=== PATIENT | male | born 1970 | race Two or more races ===

== ENCOUNTER 2022-08-11 21:08 | Inpatient (IN) | payer OTHER ==
[2022-08-11] MEDS ORDERED: LORazepam 2 MG/ML SDV VIAL IM ONE (21:15)
[2022-08-11] MEDS ORDERED: METOPROLOL TARTRATE 50 MG TABLET (FP) PO ONE (21:29)
[2022-08-11] MEDS ORDERED: chlordiazePOXIDE HCL 25 MG CAPSULE PO ONE (21:42)
[2022-08-11] MEDS ORDERED: chlordiazePOXIDE HCL 25 MG CAPSULE ONE (21:42)
[2022-08-11] MEDS ORDERED: METOPROLOL TARTRATE 25 MG TABLET (FP) ONE (21:42)
[2022-08-11] MEDS ORDERED: ACETAMINOPHEN 325 MG TABLET (FP) PO PRN (21:58)
[2022-08-11] MEDS ORDERED: MAGNESIUM HYDROX 2400MG/30ML ORAL SUSPENSION 30 ML CUP PO PRN (21:58)
[2022-08-11] MEDS ORDERED: POLYETHYLENE GLYCOL (HEALTHYLAX) 3350 17 GM PACKET PO PRN (21:58)
[2022-08-11] MEDS ORDERED: P-EPHED 60MG/TRIPROLIDI 2.5MG TABLET PO PRN (21:58)
[2022-08-11] MEDS ORDERED: BISMUTH SUBSALICYLATE 524 MG/30 ML PO PRN (21:58)
[2022-08-11] MEDS ORDERED: BENZONATATE 200 MG CAPSULE PO PRN (21:58)
[2022-08-11] MEDS ORDERED: BENZOCAINE/MENTHOL (CHLORASEPTIC ) LOZENGE MM PRN (21:58)
[2022-08-11] MEDS ORDERED: DICYCLOMINE HCL 10 MG CAPSULE PO PRN (21:58)
[2022-08-11] MEDS ORDERED: LOPERAMIDE HCL 2 MG CAPSULE PO PRN (21:58)
[2022-08-11] MEDS ORDERED: IBUPROFEN 400 MG TABLET (FP) PO PRN (21:58)
[2022-08-11] MEDS ORDERED: guaiFENesin 600 MG TABLET.ER (FP) PO PRN (21:58)
[2022-08-11] MEDS ORDERED: IBUPROFEN 600 MG TABLET (FP) PO PRN (21:58)
[2022-08-11] MEDS ORDERED: NICOTINE 10 MG CARTRIDGE (INHALER) IH PRN (21:58)
[2022-08-11] MEDS ORDERED: ONDANSETRON *ODT* 4 MG TABLET SL PRN (21:58)
[2022-08-11] MEDS ORDERED: MAG HYDROX/AL HYDROX/SIMETH 30 ML UNIT-DOSE CUP PO PRN (21:58)
[2022-08-11 21:59] VITALS: BMI 23.1
[2022-08-11] MEDS ORDERED: chlordiazePOXIDE HCL 25 MG CAPSULE PO PRN (22:01)
[2022-08-11] MEDS ORDERED: levETIRAcetam 500 MG TABLET (FP) PO ONE (22:26)
[2022-08-11] MEDS: levETIRAcetam 500 MG TABLET (FP) PO SCH (22:34)
[2022-08-12] MEDS: METHOCARBAMOL 500 MG TABLET PO PRN (00:07)
[2022-08-12] MEDS: hydrOXYzine PAMOATE 25 MG CAPSULE (FP) PO PRN ×2 (00:07→10:48)
[2022-08-12] MEDS: chlordiazePOXIDE HCL 25 MG CAPSULE PO SCH ×5 (00:09→22:47)
[2022-08-12] MEDS: THIAMINE HCL 100 MG TABLET (FP) PO SCH ×2 (00:10→22:47)
[2022-08-12 10:14] LABS: ALBUMIN 3.8 g/dl (3.4-5.0); BLOOD UREA NITROGEN 9.2 mg/dL (7-18); CALCIUM 9.7 mg/dL (8.5-10.1)
[2022-08-12 10:15] LABS: HEMOGLOBIN 13.6 GM/dL (11.7-16.9); MCH 32.5 pg (25.7-33.7); MCHC 34.8 g/dl (32.0-35.9); MEAN CELL VOLUME 93.3 fl (80-96); MEAN PLT VOLUME 8.8 fl (7.5-11.1); PLATELET COUNT 95 10^3/uL (134-434); RBC 4.18 M/mm3 (4.00-5.60); RDW 14.9 % (11.9-15.9); WHITE BLOOD COUNT 2.7 K/mm3 (4.0-10.0)
[2022-08-12 10:17] LABS: CREATININE 0.6 mg/dL (0.55-1.3)
[2022-08-12 10:18] LABS: TOT PROT 8.3 g/dl (6.4-8.2)
[2022-08-12] MEDS: PRENATAL VITAMINS W/ FOLIC ACID TABLET (FP) PO SCH (10:47)
[2022-08-12] MEDS: levETIRAcetam 500 MG TABLET (FP) PO SCH ×2 (10:48→22:47)
[2022-08-12] MEDS: MELATONIN 5 MG TABLETS PO PRN (22:48)
[2022-08-13] MEDS: chlordiazePOXIDE HCL 25 MG CAPSULE PO SCH ×2 (06:09→10:25)
[2022-08-13] MEDS: PRENATAL VITAMINS W/ FOLIC ACID TABLET (FP) PO SCH (10:25)
[2022-08-13] MEDS: levETIRAcetam 500 MG TABLET (FP) PO SCH ×2 (10:25→22:23)
[2022-08-13] MEDS: METHOCARBAMOL 500 MG TABLET PO PRN (10:26)
[2022-08-13] MEDS: hydrOXYzine PAMOATE 25 MG CAPSULE (FP) PO PRN (10:26)
[2022-08-13] MEDS ORDERED: LORazepam 1 MG TABLET PO PRN (15:46)
[2022-08-13] MEDS: LORazepam 2 MG TABLET PO SCH ×2 (17:28→22:24)
[2022-08-13] MEDS: THIAMINE HCL 100 MG TABLET (FP) PO SCH (22:23)
[2022-08-13] MEDS: MELATONIN 5 MG TABLETS PO PRN (22:23)
[2022-08-14] MEDS ORDERED: chlordiazePOXIDE HCL 10 MG CAPSULE PO PRN
[2022-08-14] MEDS ORDERED: chlordiazePOXIDE HCL 10 MG CAPSULE PO SCH (05:00)
[2022-08-14] MEDS: LORazepam 1 MG TABLET PO SCH ×4 (05:49→22:16)
[2022-08-14] MEDS: PRENATAL VITAMINS W/ FOLIC ACID TABLET (FP) PO SCH (10:28)
[2022-08-14] MEDS: levETIRAcetam 500 MG TABLET (FP) PO SCH ×2 (10:29→22:16)
[2022-08-14] MEDS: MELATONIN 5 MG TABLETS PO PRN (22:16)
[2022-08-14] MEDS: THIAMINE HCL 100 MG TABLET (FP) PO SCH (22:17)
[2022-08-14] MEDS: NICOTINE POLACRILEX 2 MG GUM BUC PRN (22:19)
[2022-08-15] MEDS ORDERED: LORazepam 0.5 MG TABLET PO PRN
[2022-08-15] MEDS ORDERED: chlordiazePOXIDE HCL 10 MG CAPSULE PO SCH (05:00)
[2022-08-15] MEDS: LORazepam 0.5 MG TABLET PO SCH ×4 (05:40→22:14)
[2022-08-15] MEDS: METHOCARBAMOL 500 MG TABLET PO PRN ×2 (10:16→22:14)
[2022-08-15] MEDS: levETIRAcetam 500 MG TABLET (FP) PO SCH ×2 (10:16→22:15)
[2022-08-15] MEDS: hydrOXYzine PAMOATE 25 MG CAPSULE (FP) PO PRN (10:16)
[2022-08-15] MEDS: PRENATAL VITAMINS W/ FOLIC ACID TABLET (FP) PO SCH (10:17)
[2022-08-15] MEDS: NICOTINE POLACRILEX 2 MG GUM BUC PRN (18:46)
[2022-08-15] MEDS: THIAMINE HCL 100 MG TABLET (FP) PO SCH (22:14)
[2022-08-16] MEDS ORDERED: LORazepam 0.5 MG TABLET PO ONE (05:00)
[2022-08-16] MEDS ORDERED: chlordiazePOXIDE HCL 10 MG CAPSULE PO ONE (05:00)
[2022-08-16] MEDS: METHOCARBAMOL 500 MG TABLET PO PRN ×2 (05:41→11:49)
[2022-08-16 10:30] VITALS: PULSE 76
[2022-08-16] MEDS: levETIRAcetam 500 MG TABLET (FP) PO SCH (11:35)
[2022-08-16] MEDS: PRENATAL VITAMINS W/ FOLIC ACID TABLET (FP) PO SCH (11:36)
[2022-08-16 13:33] VITALS: BP 130/85; RESP 18; TEMP 98.4
== END 2022-08-16 01:45 | disposition home or self-care (01) | DRG 775 ==
LOC: YASAS 21:08 → Y6N 22:03
PROVIDERS: ADMIT Allergy & Immunology; ATTEND Surgery
PROC: HZ2ZZZZ Detoxification Services for Substance Abuse Treatment (ICD-10-PCS; principal; 2022-08-11)
DX: F10.230 Alcohol dependence with withdrawal, uncomplicated (principal); F17.210 Nicotine dependence, cigarettes, uncomplicated; M48.061 Spinal stenosis, lumbar region without neurogenic claudication; M54.50 Low back pain, unspecified; R74.01 Elevation of levels of liver transaminase levels; Z86.2 Personal history of diseases of the blood and blood-forming organs and certain disorders involving the immune mechanism; Z99.89 Dependence on other enabling machines and devices; Z56.0 Unemployment, unspecified; Z59.00 Homelessness unspecified
CPT/HCPCS: 36415; 80053; 85027; 86780; 93005; 93010; C9803-CS; U0003; U0005